=== PATIENT | female | born 1995 | race Caucasian/White ===

== ENCOUNTER 2018-10-02 05:57 | Day surgery (SDC) | payer MEDICAID ==
[2018-09-28 14:25] LABS: BASOPHILS # (AUTO) 0.1 X10'3 (0-0.2); BASOPHILS % (AUTO) 0.8 % (0-1); EOSINOPHILS % (AUTO) 0.6 % (0-6); LYMPHOCYTES # (AUTO) 1.9 X10'3 (1.1-4.8); LYMPHOCYTES % (AUTO) 30.3 % (21-51); MEAN CORPUSCULAR HEMOGLOBIN 29.5 PG (27.0-31.0); MEAN CORPUSCULAR HGB CONC 32.9 g/dL (33.0-36.5); MEAN CORPUSCULAR VOLUME 89.7 FL (78-98); MEAN PLATELET VOLUME 9.6 FL (7.4-10.4); MONOCYTES # (AUTO) 0.7 X10'3 (0-0.9); MONOCYTES % (AUTO) 10.6 % (2-12); NEUTROPHILS # (AUTO) 3.6 X10'3 (1.8-7.7); NEUTROPHILS % (AUTO) 57.7 % (42-75); PRE OP HEMATOCRIT 39.2 % (35.0-45.0); PRE OP HEMOGLOBIN 12.9 g/dL (12.0-16.0); PRE OP PLATELET COUNT 231 X10'3 (140-440); RED BLOOD COUNT 4.36 X10'6 (4.20-5.60); RED CELL DISTRIBUTION WIDTH 13.8 % (11.5-14.5)
[2018-09-28 14:37] LABS: HCG SERUM QL NEGATIVE
[2018-09-28 14:40] LABS: ALBUMIN 3.8 G/DL (3.4-5.0); ALBUMIN/GLOBULIN RATIO 1.1 (1.1-1.5); ALKALINE PHOSPHATASE 169 IU/L (46-116); BLOOD UREA NITROGEN 17 MG/DL (7-18); BUN/CREATININE RATIO 32.7 (6.6-38.0); CALCIUM 8.9 MG/DL (8.5-10.1); CHLORIDE 104 MMOL/L (99-107); CREATININE 0.52 MG/DL (0.40-0.90); PRE OP ALT 15 U/L (30-65); PRE OP ANION GAP 6 (8-16); PRE OP AST 13 U/L (10-37); PRE OP BILIRUB, TOTAL 0.3 MG/DL (0.0-1.0); PRE OP GLUCOSE 111 MG/DL (70-104); PRE OP POTASSIUM 3.7 MMOL/L (3.4-5.1); PRE OP SODIUM 136 MMOL/L (135-145); TOTAL PROTEIN 7.4 G/DL (6.4-8.2); eGFR > 90 ML/MIN
[2018-09-28 14:44] LABS: CLARITY,URINE SLIGHTLY CLOUDY (Clear); COLOR,URINE YELLOW (Yellow); GLUCOSE, URINE NEGATIVE (Neg); KETONES,URINE NEGATIVE (Neg); LEUKOCYTE ESTERASE ,URINE NEGATIVE (Neg); NITRITES, URINE NEGATIVE (Neg); OCCULT BLOOD,URINE NEGATIVE (Neg); PH,URINE 5.5 (4.8-8.0); PROTEIN,URINE NEGATIVE (Neg); UROBILINOGEN,URINE 0.2 E.U/dL (0.2-1.0)
[2018-09-28 14:47] LABS: UA COLLECTION TYPE VOIDED
[2018-09-28 14:50] LABS: BACTERIA,URINE 1+ /HPF (Neg); MUCUS STRANDS FEW /LPF (Neg); RBC,URINE NONE SEEN /HPF (0-2); SQUAMOUS EPITHELIAL CELL,UR MANY /LPF (FEW); WBC,URINE 0-4 /HPF (0-4)
[2018-10-02] VITALS (12 sets, daily range): BP systolic 106–121; BP diastolic 53–79
[~2018-10-02] VITALS: Ht 144.8 cm; Wt 42.5 kg
[~2018-10-02 05:57] MED LIST: BENZ60GE TOP; CLIN60SO2 TOP; DOXY100C76 PO; cefazolin/dext.iso 2gm/50ml 50 ML IV ONE; famotidine 20mg tablet PO ONE; ringers solution, lacted 1,000 ML IV SCH
[2018-10-02] MEDS ORDERED: LIDOcaine 1% (10mg/ml) 2ml vial ONE (06:30)
[2018-10-02] MEDS ORDERED: BUPIVAcaine/PF 2.5mg/ml (0.25%) 10ml vial ONE (06:47)
[2018-10-02] MEDS ORDERED: fentaNYL/PF 50MCG/1 ML 2ML syringe ONE (08:15)
[2018-10-02] MEDS ORDERED: MIDAZolam 5mg/5ml vial ONE (08:15)
[2018-10-02] MEDS ORDERED: ondansetron/PF 4mg/2ml inj ONE (08:16)
[2018-10-02] MEDS ORDERED: LIDOcaine 2% (20mg/ml) 5ml vial ONE (08:16)
[2018-10-02] MEDS ORDERED: dexamethasone sod phosphate 4mg/ml inj. ONE (08:16)
[2018-10-02] MEDS ORDERED: propofol inj 20 ML IV ONE (08:16)
[2018-10-02] MEDS ORDERED: ringers solution, lacted 1,000 ML IV SCH (08:26)
[2018-10-02] MEDS ORDERED: labetalol 20mg/4ml (5mg/ml) syringe IV PRN (08:30)
[2018-10-02] MEDS ORDERED: hydrALAZINE 20mg/ml inj. IV PRN (08:30)
[2018-10-02] MEDS ORDERED: meperidine/PF 25mg/ml syringe IV PRN (08:30)
[2018-10-02] MEDS ORDERED: sevoflurane 250ml liquid IH ONE (08:30)
[2018-10-02] MEDS ORDERED: morphine 4 MG/ML inj SYRINge IV PRN ×2 (08:30)
[2018-10-02] MEDS ORDERED: ondansetron/PF 4mg/2ml inj IV PRN (08:30)
[2018-10-02] MEDS ORDERED: ROPIVAcaine 0.5% (5mg/ml) 30ml vial ONE (08:54)
--- NOTE | 2018-10-02 09:30 | NUR ---
Received from OR via bed, accompanied by Anesthesiologist. Report received. Initial physical assessment done and recorded.
[2018-10-02] MEDS: meperidine/PF 25mg/ml syringe IV PRN ×2 (09:49→10:05)
--- NOTE | 2018-10-02 11:10 | NUR ---
PT STATED SHE VOIDED IN TOILET, ABD SOFT. TO BE DISCHARGED, SITZ BATH INSTRUCTION GIVEN
--- NOTE | 2018-10-02 11:15 | NUR ---
Discharge criteria met, discharge instructions given, demonstrates verbal understanding. Discharged home in good condition. Dr. Almanzar at bedside, prescription given. Stable at discharge.
== END 2018-10-02 11:15 | disposition home or self-care (01) ==
LOC: PAS 05:57
PROVIDERS: ATTEND Surgery
DX: K64.2 Third degree hemorrhoids (principal); K64.4 Residual hemorrhoidal skin tags; F41.9 Anxiety disorder, unspecified; Z98.890 Other specified postprocedural states; Z79.899 Other long term (current) drug therapy
CPT/HCPCS: 36415; 46947; 80053; 81001; 82948; 84703; 85025; A6222; A6449; J0690; J1100; J2001; J2175; J2250; J2405; J2704; J3010; J3490; A7000; J2795; J7120